=== PATIENT | male | born 1950 | race Caucasian/White ===

== ENCOUNTER → 2018-04-02 | Outpatient (CLI) | payer MEDICARE, OTHER ==
[~2018-04-02] MED LIST: ASPIR 8181 MG PO; CENTRUM SILVER1 EAC4 PO; CIPROFLOXACIN500 M1 PO; FISH OIL 1,001000 M2 PO; FLAGYL500 MG PO; HYDROCODONE-AP1 EAC6 PO; JANUVIA50 MG PO; LISINOPRIL20 MG PO; PROTONIX40 M1 PO; WELCHOL 625 MG625 MG PO; ZETIA10 MG PO
[2018-04-02 07:59] LABS: ABSOLUTE LYMPHOCYTES 1.2 thou/uL (0.8-5.3); ABSOLUTE MONOCYTES 0.4 thou/uL (0.0-1.2); ABSOLUTE NEUTROPHILS 6.4 thou/uL (1.6-8.1); BASOPHILS 0.5 %; EOSINOPHILS 0.1 %; HEMATOCRIT 42.8 % (42.0-52.0); HEMOGLOBIN 14.2 gm/dL (14.0-18.0); LYMPHOCYTES 14.9 %; MCH 30.5 pg (26.0-34.0); MCHC 33.2 g/dL (28.0-37.0); MCV 91.9 fL (80.0-100.0); MONOCYTES 5.1 %; MPV 7.2 fl. (7.2-11.1); NUCLEATED RBCS 0 /100WBC; PLATELET COUNT* 254 thou/uL (150-400); POLYS 79.4 %; RBC 4.66 mil/uL (4.50-6.00)
[2018-04-02 08:59] LABS: ESR (SEDRATE) 15 mm/hr (0-20)
== END ==
LOC: M.LAB 07:34
PROVIDERS: Internal Medicine Gastroenterology
DX: K63.3 Ulcer of intestine (principal)

== ENCOUNTER 2019-06-14 09:56 | Observation (INO) | payer OTHER ==
[2019-06-09 08:55] LABS: ABSOLUTE EOSINOPHILS 0.3 thou/uL (0.0-0.7); ABSOLUTE LYMPHOCYTES 1.7 thou/uL (0.8-5.3); ABSOLUTE MONOCYTES 0.7 thou/uL (0.0-1.2); ABSOLUTE NEUTROPHILS 4.1 thou/uL (1.6-8.1); BASOPHILS 0.7 %; EOSINOPHILS 4.2 %; HEMATOCRIT 40.5 % (42.0-52.0); LYMPHOCYTES 25.5 %; MCH 28.3 pg (26.0-34.0); MCHC 32.2 g/dL (28.0-37.0); MONOCYTES 9.6 %; MPV 6.8 fl. (7.2-11.1); NUCLEATED RBCS 0 /100WBC; PLATELET COUNT* 251 thou/uL (150-400); RBC 4.61 mil/uL (4.50-6.00); RDW-CV 15.8 % (10.5-14.5); WBC 6.8 thou/uL (4.0-11.0)
[2019-06-09 09:09] LABS: ALBUMIN 3.4 g/dL (3.4-5.0); CALCIUM 8.9 mg/dL (8.5-10.1); CREATININE 1.1 mg/dL (0.6-1.3); POTASSIUM 3.6 mmol/L (3.5-5.1); TOTAL BILIRUBIN 0.5 mg/dL (<0.1-1.0); TOTAL PROTEIN 6.8 g/dL (6.4-8.2)
--- NOTE | 2019-06-09 11:55 | EKG ---
[place] [address] ELECTROCARDIOGRAM REPORT Name: EDDA LUGO Room: PRE [facility]#: [id number] Admission: Attend Phys: Cristi Ambrose DO Discharge: Date of : 48 Report #: [id number] THIS REPORT FOR: //name// [facility] Test Date: 2019-06-09 Test Time: 09:14:31 Pat Name: EDDA LUGO Department: Room: Gender: M Director Of Event Management: : 1950 Requested By: Cristi Ambrose Order Number: [id number] Reading MD: Jose Alberto Pratt Measurements Intervals [place] Rate: 66 P: 46 DE: 178 QRS: 31 QRSD: 101 T: 47 QT: 398 QTc: 417 Interpretive Statements Sinus rhythm Compared to ECG 11/09/2016 09:07:36 No significant changes Electronically Signed On 06-09-2019 11:55:43 CDT by Jose Alberto Pratt [email or web address] <ELECTRONICALLY SIGNED> By: Jayme Pratt MD, [facility] 06/09/19 1155 09 3 Jayme Pratt MD, FACC /EPI
[~2019-06-14] VITALS: Ht 175.3 cm; Wt 117.9 kg
[~2019-06-14 09:56] MED LIST changes: +AMARYL2 MG PO; +COZAAR 25 MG TA25 M1 PO; +CYMBALTA30 MG PO; +HYDROCHLOROTHIA25 M2 PO; +JANUVIA100 MG PO; +NEURONTIN 300M300 M2 PO
[2019-06-14 11:08] VITALS: BP 126/85
[2019-06-14 17:27] VITALS: BP 126/80
--- NOTE | 2019-06-14 17:35 | NUR ---
PT ADMITTED TO UNIT WITH RT KNEE REPLACEMENT. PT ALERT AND ORIENTED. ON 2 LITERS O2. LUNGS CLEAR AND DIMINISHED. PULSES 2+ ALL EXTREMITIES. PT C/O PAIN, MEDS GIVEN ORDERED. FOOR PUMPS IN PLACE. JOLIE ON LT LEG. DRESSING RT LEG C/D/I. PT HAS NOT VOIDED AT THIS TIME. ACCU CHECKS ORDERED. POLAR PACK IN PLACE. CPM ORDERED. FALL RISK PRECAUTIONS IN PLACE. WILL CONTINUE TO MONITOR.
[2019-06-14 19:50] VITALS: BP 130/92
[2019-06-15] VITALS: BP 131/94
[2019-06-15 04:00] VITALS: BP 129/88
[2019-06-15 04:09] LABS: GLYCOHEMOGLOBIN (HGB A1C) 7.2 % (4.8-5.6)
[2019-06-15 05:28] LABS: HEMATOCRIT 36.3 % (42.0-52.0); HEMOGLOBIN 11.7 gm/dL (14.0-18.0)
--- NOTE | 2019-06-15 05:35 | NUR ---
PATIENT HAS REMAINED ALERT AND ORIENTED X 4 THROUGHOUT THE SHIFT AND RESTING AT INTERVALS ON HOURLY ROUNDS. STANDING AT BEDSIDE WITH MIN ASSIST, WALKER AND GAIT BELT TO VOID IN ADEQUATE AMOUNTS. MEDICATED FOR PAIN Q3H TO GOOD EFEFCT. DRESSING RIGHT KNEE CLEAN AND DRY. CPM INITIATED AT HS AND PATIENT TOLERATED WELL. VITAL SIGNS STABLE WITH O2 ON AT 2L/MIN AND CONTINUOUS CAPNOGRAPHY. CONTINUE TO MONITOR.
[2019-06-15 07:40] VITALS: BP 131/82
[2019-06-15] MEDS ORDERED: COLACE100 MG PO (08:47)
[2019-06-15] MEDS ORDERED: OXYCODONE HCL 55 MG PO (08:47)
[2019-06-15] MEDS ORDERED: ELIQUIS5 MG PO (08:47)
--- NOTE | 2019-06-15 09:13 | NUR ---
RECIEVED O.T. EVAL AND TX ORDER. WILL DEFER TO P.T. AT THIS TIME. PLEASE ORDER FURTHER O.T. SERVICES IF NEEDED.
[2019-06-15 12:16] VITALS: BP 131/82
[2019-06-15 12:21] VITALS: BP 131/82
--- NOTE | 2019-06-15 13:34 | OP ---
[facility] [address] [place] [address] OPERATIVE REPORT Name: EDDA LUGO [address]: [address]#: [id number] Admission: 06/14/19 Attend Phys: Narciso Han Discharge: Date of : 48 Report #: [id number] THIS REPORT FOR: //name// CC: Tasha Arenas DATE OF SERVICE: 06/14/2019 PREOPERATIVE DIAGNOSIS: Severe tricompartmental osteoarthritis of the right knee. POSTOPERATIVE DIAGNOSIS: Severe tricompartmental osteoarthritis of the right knee. SURGERY PERFORMED: MicroPort 3 components cemented at right total knee arthroplasty femur 5, tibia 6, 12 polyethylene, and 35 patella. SURGEON: Cristi Ambrose DO. DIRECTOR SURGICAL: Dr. Vera. SECOND COUNSELOR EDUCATION PROFESSOR: Kvng Gill, resident. ANESTHESIA: General anesthetic and adductor block. The patient did receive Ancef 2 grams IV piggyback preoperatively. DRAINS: None. SPECIMENS: None. COMPLICATIONS: None. ESTIMATED BLOOD LOSS: 150 mL. GROSS FINDINGS: This gentleman failed all conservative care measures of the right knee for osteoarthritis and continued with pain. Intraoperatively, this actually was worse than his radiographs where he had a completely eburnated patellofemoral joint with a hypoplastic lateral patella. Eburnated bone even some on the medial compartment. The patient post-placement of the right total knee arthroplasty had a very stable arc of motion of the right knee in full extension, mid flexion and flexion. The patella tracked well. SURGERY IN DETAIL: The patient was taken to the operating room and placed on table, given the general anesthetic, but prior to that had abductor, catheter block applied by Anesthesia in holding. A well-padded tourniquet was placed [address] [address] OPERATIVE REPORT Name: EDDA LUGO Room: [address] Remi Vidales#: [id number] Admission: 06/14/19 Attend Phys: Narciso Han Discharge: Date of : 48 Report #: [id number] on the right thigh. Next, a Hibiclens scrub and chlorhexidine prep and sterile draping for right leg surgery. Timeout was called and verified by everyone in the room for the right knee. At this point in time, I did not use a tourniquet until the cementing technique. I did make a midline incision with a 10 blade scalpel through skin and subcutaneous tissues, maintaining hemostasis at all times through surgery. A second medial parapatellar capsular incision was made. The patella was everted, knee flexed 90 degrees, and excess osteophytes were removed. Distal femoral drill hole was made in routine fashion using a 5 mm distal femoral cut, the standard cut was made off the distal femur when the block was applied. At this point in time, I did an external tibia guide, cut now and secured the guide across the ankle and proximally on the tibia measured off the most high side took 10 mm off that side and wafer of bone was cut once the block was applied. The bone was removed, I did also at this point in time now went back to the femoral side, I did do a #5, the drill holes were made, routine 4-in-1 block was applied, all cuts were made and all the excess bone was removed on the right femur. At this point in time, I did take some osteophytes off the posterior femur as well with mallet and an osteotome. I sized the tibia to a #6, the trial component was placed and held in position with pins. The trial femoral component was next applied, fit well also and I tried a 10 mm trial polyethylene in the tray and it felt stable, but a slight amount of play but this was just for a trial reasons. At this point in time, I cut the patella freehand technique as he totally wore the lateral side down. Some rather significantly, I did not want to ream this down. I sized the patella to a 35 appropriately drill the hole, did a trial reduction and it tracked well. The femoral sulcus cut was made on the trial component as well. At this point in time, I esmarched the extremity, inflated the tourniquet to 325 mmHg, Esmarch of this extremity and then did go ahead and take off the femoral component, the polyethylene trial and did my reaming and a cruciform cut to the tibia. Now at this point in time, the tibial component and trial component was removed as well as patellar component. I did pulsatile lavage irrigation, across this preparing for one stage cementing technique. At this point in time, I did cement in the tibia, removed all excess cement, cemented on the femoral component, removed all excess cement and then stretched him with a 12 mm polyethylene. During the hardening phase of cement, the patellar button was applied as well and removing excess cement. Once all the cement had hardened, clamps were removed. I put the knee through motion was quite stable, so I elected for a 12 mm polyethylene real component, I did now seat this in the tibia tray and the knee was reduced, copiously irrigated with normal saline and I did a TXA solution for 3 minutes followed with normal saline again. Tourniquet was released. He tolerated that quite nicely. At this stage I then closed the capsule with 1 Ethibond and 1 Vicryl in nwzgyz-mw-izloq fashion, 2-0 Monocryl subcutaneously with ____ running suture and Dermabond to the skin. Mepilex dressing was applied. The patient was transferred off the table, taken [place] [address] OPERATIVE REPORT Name: EDDA LUGO Room: [address] Remi Vidales#: [id number] Admission: 06/14/19 Attend Phys: Narciso Han Discharge: Date of : 48 Report #: [id number] I attest I was present for all critical aspects of the surgery. Needle, instrument, sponge counts correct. <ELECTRONICALLY SIGNED> By: Cristi Ambrose DO 06/15/19 1334 1512 [id number] Ambrose DO /smiley
--- NOTE | 2019-06-15 13:56 | NUR ---
ASSUMED CARE OF PATIENT AT APPROX 0730. ALERT ASND ORIENTED X4. ASSESSMENT COMPLETED AND CHARTED. VSS ON ROOM AIR. PAIN MANAGED WITH ORAL PAIN MEDICATION. NO COMPLAINTS OF NAUSEA OR SOA. FLUIDS AND ANTIBIOTICS INFUSED ORDERED THEN SALINE LOCKED. PATIENT UP WITH ASSIST OF ONE USING GAIT BELT ANS WALKER TO USE THE BATHROOM. WORKED WELL WITH THERAPIES AND PROGRESSED TOWARD GOALS. PATIENT DISCHARGED AT 1327 WITH ALL PERSONAL BELONGINGS, PRESCRIPTIONS, AND DISCHARGE INFORMATION.
== END 2019-06-15 13:27 | disposition home health service (06) ==
LOC: M.SUR 09:56 → M.PRE 11:56 → EDSTATUS 11:59 → M.SUR 12:13 → M.ORTHSURG 15:38 → M.TBA-ER 15:38 → M.ORTHSURG 15:38
PROVIDERS: Orthopaedic Surgery; ADMIT Internal Medicine
DX: M17.11 Unilateral primary osteoarthritis, right knee (principal); E11.9 Type 2 diabetes mellitus without complications; I10 Essential (primary) hypertension; F32.9 Major depressive disorder, single episode, unspecified; K21.9 Gastro-esophageal reflux disease without esophagitis; M10.9 Gout, unspecified; Z68.38 Body mass index [BMI] 38.0-38.9, adult; E66.9 Obesity, unspecified; Z86.718 Personal history of other venous thrombosis and embolism; Z88.8 Allergy status to other drugs, medicaments and biological substances; Z79.84 Long term (current) use of oral hypoglycemic drugs; Z79.82 Long term (current) use of aspirin; Z79.899 Other long term (current) drug therapy

== ENCOUNTER 2019-09-13 06:36 | Inpatient (IN) | payer OTHER ==
[2019-09-08 08:26] LABS: ABSOLUTE EOSINOPHILS 0.4 thou/uL (0.0-0.7); ABSOLUTE LYMPHOCYTES 1.8 thou/uL (0.8-5.3); ABSOLUTE MONOCYTES 0.6 thou/uL (0.0-1.2); BASOPHILS 0.8 %; EOSINOPHILS 6.4 %; HEMATOCRIT 44.3 % (42.0-52.0); HEMOGLOBIN 14.8 gm/dL (14.0-18.0); LYMPHOCYTES 31.8 %; MCH 29.7 pg (26.0-34.0); MCHC 33.5 g/dL (28.0-37.0); MCV 88.9 fL (80.0-100.0); NUCLEATED RBCS 0 /100WBC; PLATELET COUNT* 226 thou/uL (150-400); RBC 4.98 mil/uL (4.50-6.00); RDW-CV 20.6 % (10.5-14.5); WBC 5.8 thou/uL (4.0-11.0)
[2019-09-08 08:57] LABS: ALBUMIN 3.8 g/dL (3.4-5.0); CALCIUM 8.8 mg/dL (8.5-10.1); CREATININE 1.1 mg/dL (0.6-1.3); POTASSIUM 4.1 mmol/L (3.5-5.1); TOTAL BILIRUBIN 0.5 mg/dL (<0.1-1.0); TOTAL PROTEIN 6.9 g/dL (6.4-8.2)
[2019-09-08 09:26] LABS: ANISOCYTOSIS 2+; PLATELET ESTIMATE ADEQUATE
[2019-09-08 23:08] LABS: GLYCOHEMOGLOBIN (HGB A1C) 5.8 % (4.8-5.6)
[~2019-09-13] VITALS: Ht 175.3 cm; Wt 117.9 kg
[~2019-09-13 06:36] MED LIST changes: +COLACE100 MG PO; +ELIQUIS5 MG PO; +IRON325 M1 PO; +OXYCODONE HCL 55 MG PO
[2019-09-13 12:10] VITALS: BP 145/85
[2019-09-13 16:22] VITALS: BP 120/73
--- NOTE | 2019-09-13 17:35 | NUR ---
PT REMAINED ALERT AND ORIENTED. PT RESTING IN BED. PAIN MEDS GIVEN ORDERED. PT HAS NOT VOIDED YET SINCE ARRIVAL TO UNIT. FALL RISK PRECAUTIONS IN PLACE. HOURLY ROUNDING COMPLETED. WILL CONTINUE TO MONITOR.
[2019-09-13 19:45] VITALS: BP 127/83
[2019-09-13 23:35] VITALS: BP 119/79
[2019-09-14 04:41] LABS: HEMATOCRIT 38.4 % (42.0-52.0); HEMOGLOBIN 12.8 gm/dL (14.0-18.0)
[2019-09-14 04:56] VITALS: BP 132/72
--- NOTE | 2019-09-14 05:17 | NUR ---
PATIENT AMBULATING WELL WITH WALKER TO RESTROOM. HIS PAIN MANAGED WELL WITH HYDROCODONE AND OXYCODONE. RECEIVED ALL SCHEDULED ABX. DRESSING ON LEFT KNEE IS C/D/I AND JOLIE HOSE IN PLACE. PLAN TO WORK WITH THERAPY TODAY. WILL CONTINUE TO FOLLOW PLAN OF CARE.
[2019-09-14 07:15] VITALS: BP 150/91
[2019-09-14] MEDS ORDERED: OXYCODONE HCL 55 MG PO (09:35)
[2019-09-14] MEDS ORDERED: NORCO 5-325 TA1 EAC1 PO (09:36)
[2019-09-14] MEDS ORDERED: ELIQUIS2.5 MG PO (09:36)
[2019-09-14] MEDS ORDERED: ASPIR-TRIN325 MG PO (09:38)
[2019-09-14 09:39] VITALS: BP 150/91
--- NOTE | 2019-09-14 11:00 | NUR ---
PT.IS BEING DISCHARGED TODAY WITH HH. HE SAID HE WANTS TO HAVE THE SAME LAST TIME. WAS IN IN JUN.FOR OTHER KNEE SURGERY. HE USED [facility] FOR HOME HEALTH BEFORE PRIOR TO DOING OUTPT.THERAPY. HE HAS A FRONT WHEEL WALKER AT HOME. HIS WILL BE WITH HIM WHEN HE GOES HOME. FAXED REFERRAL TO [facility]/CHRISTOPHER. THEY WILL CALL HIM TO SET UP APPTS. CALLED GAEL INTO HIS PHARACY [facility], WRITTEN. UNABLE TO OBTAIN COPAY. PT.SAID HE HAS MET HIS YEARLY DEDUCTIBLE FROM LAST SURGERY. PT.WANTING LEAVE SO WILL NOT WAIT FOR COPAY.
[2019-09-14 12:17] VITALS: BP 150/91
--- NOTE | 2019-09-14 12:18 | NUR ---
PT GIVEN DISCHARGE INFORMATION, CARE NOTES, AND PRESCRIPTIONS. IV REMOVED. PT DID NOT WANT NORCO PRESCRIPTION, PRESCRIPTION SHREDDED. FALL RISK PRECAUTIONS IN PLACE. HOURLY ROUNDING COMPLETED. PT LEFT VIA WHEELCHAIR WITH NURSING STAFF TO HOME WITH HOME HEALTH.
--- NOTE | 2019-09-14 12:20 | NUR ---
RECIEVED O.T. EVAL AND TX ORDERS. WILL DEFER TO P.T. AT THIS TIME. PLEASE ORDER FURTHER O.T. SERVICES.
--- NOTE | 2019-09-14 12:21 | OP ---
[address] [address] OPERATIVE REPORT Name: LUGOEDDA Room: [address] [place] .#: [id number] Admission: 09/13/19 Attend Phys: Narciso Han Discharge: Date of : 48 Report #: [id number] THIS REPORT FOR: //name// CC: Cristi Arenas DATE OF SERVICE: 09/13/2019 PREOPERATIVE DIAGNOSIS: Severe left knee tricompartmental osteoarthritis. POSTOPERATIVE DIAGNOSIS: Severe left knee tricompartmental osteoarthritis. SURGERY PERFORMED: Mirna cemented 3 component, left total knee arthroplasty femur #7, F is the tibia, 14 polyethylene, 32 patella. SURGEON: Cristi Ambrose DO DRAFTING INSTRUCTOR: Sean Gilbert DO, resident. ANESTHESIA: General anesthetic plus an adductor block to the left leg. ESTIMATED BLOOD LOSS: 150 mL. ANTIBIOTICS: The patient did receive Ancef 2 grams IV piggyback preoperatively. SPECIMENS: He has no specimen. DRAINS: He has no drains. COMPLICATIONS: None. GROSS FINDINGS: Prior to surgery, this gentleman has failed all conservative care measures for osteoarthritis of the left knee, here for definitive treatment now in the form of surgical intervention for total arthroplasty. Intraoperatively x-rays correlated with his intraoperative findings, severe eburnated bone to the entire patellofemoral compartment as well as eburnated bone to the medial and the lateral compartments across the femoral sides, tibia sides, significant laterally more than medially. Post placement of the total joint arthroplasty through an arc of motion, extension, mid flexion and flexion, it was stable in all planes. SURGERY IN DETAIL: This gentleman was taken to the operating room and placed on the table, given the benefit of general anesthetic. Prior to this, he also had an adductor block by anesthesia to his left thigh. He underwent a Hibiclens scrub and chlorhexidine prep and sterile draping [place] [address] OPERATIVE REPORT Name: EDDA LUGO Room: [address] [place] [facility].#: [id number] Admission: 09/13/19 Attend Phys: Narciso Han Discharge: Date of : 48 Report #: [id number] was called and verified by everyone in the room for the left leg. Surgery began without a tourniquet. I only used tourniquet for cementing purposes at the end of the case. A midline incision was made with a 20 blade scalpel through skin and subcutaneous tissues followed with a second medial parapatellar capsular incision. Hemostasis was maintained throughout surgery. Patella was everted, knee flexed 90 degrees. Distal femoral drill hole was made in routine fashion. The distal femoral cut was made in a 5-degree angle for the left leg and a wafer of bone was removed from each side. Once the femur was cut distally, it went down to the tibia side using external guide across the ankle and proximally secured the cutting bone block in place, measured off the high lateral side with a stylus, appropriately held cutting block in place and then the wafer of bone was cut and removed from the tibia. The extension block was placed and noted to fit quite well. All pins were now removed. I went back to the femoral side and sized his femur to a #7 appropriately. At this point in time, the 4-in-1 block was applied. All cuts were made and all excess bone was now removed. Once the femur was finished, went back to the tibia sized with various sizers of trials across his knee. The F looked like it fit him wall to wall anterior, posterior, medial and lateral, so it was clamped into position appropriately. The patient's surgery continued with a screw in that trial component into the tibia, now put in the femoral component back in place appropriately. Distal femoral holes were now drilled. Surgery continued again with trying the polyethylene a 12 fit into the joint and so once this was accomplished, he felt still good in most planes and so I went down and cut the patella with the Mirna reamer, 32 patella was sized and appropriately drilled, and placed. I now drilled the distal femur as well and Esmarch the extremity. Tourniquet was inflated to 300 mmHg. At this point in time, I removed all the femoral components, the polyethylene component, drilled, and reamed and appropriately cruciform cut was made across the tibia proximally. All trial components were removed. I prepared the leg for cementing techniques now. Pulsatile lavage irrigation was used across the entire knee surface. I maintained hemostasis one more time throughout all aspects of the knee. I did a 1 stage cementing technique with F tibia, compressing it, removing excess cement. Then, I put in the 7 component to compress it, removed an excess cement, compressed him with a 14 mm polyethylene and then cemented in the patella as well. I held the leg in extension until cement had hardened. Appropriately TXA solution was put into the knee, now for an additional 5 minutes until cement finished hardening. I went ahead and then removed. I released the tourniquet at this point in time. I was preparing him now for the real polyethylene. The 14 was very stable, so I elected to put in a vitamin E 14 mm polyethylene and clicked it into the tibia tray. Leg was reduced. Again, hemostasis was maintained. A pulsatile lavage irrigated the knee, closed him deep capsule with #1 Vicryl, #1 Ticron in dvbkza-dm-xghll fashion, subcutaneous tissues, 2-0 Monocryl in wsqxzk-lx-ujovn fashion, a running Stratafix and Dermabond with Mepilex dressing applied, transferred off the table, taken [place] [address] OPERATIVE REPORT Name: EDDA LUGO Room: [address] [place] [facility]#: [id number] Admission: 09/13/19 Attend Phys: Narciso Han Discharge: Date of : 48 Report #: [id number] I attest I was present for all critical aspects of surgery. Needle, instrument, and sponge counts were correct on this gentleman. <ELECTRONICALLY SIGNED> By: Cristi Ambrose DO 09/14/19 1221 1438 Esther Ambrose DO /nt
== END 2019-09-14 12:22 | disposition home health service (06) | DRG 470 ==
LOC: M.PRE 06:36 → M.TBA 11:39 → M.ORTHSURG 15:05 → M.TBA 15:05 → M.ORTHSURG 16:02 → M.PRE 16:20 → M.ORTHSURG 09-14 12:22
PROVIDERS: Orthopaedic Surgery; ADMIT Internal Medicine
PROC: 0SRD0J9 Replacement of Left Knee Joint with Synthetic Substitute, Cemented, Open Approach (ICD-10-PCS; principal; 2019-09-13)
DX: M17.12 Unilateral primary osteoarthritis, left knee (principal); D62 Acute posthemorrhagic anemia; I10 Essential (primary) hypertension; Z96.1 Presence of intraocular lens; F32.9 Major depressive disorder, single episode, unspecified; K21.9 Gastro-esophageal reflux disease without esophagitis; M10.9 Gout, unspecified; Z96.651 Presence of right artificial knee joint; E78.00 Pure hypercholesterolemia, unspecified; R19.7 Diarrhea, unspecified; E78.5 Hyperlipidemia, unspecified; E11.40 Type 2 diabetes mellitus with diabetic neuropathy, unspecified; K25.9 Gastric ulcer, unspecified as acute or chronic, without hemorrhage or perforation; Z88.8 Allergy status to other drugs, medicaments and biological substances; Z98.42 Cataract extraction status, left eye; Z98.41 Cataract extraction status, right eye; Z87.891 Personal history of nicotine dependence

== ENCOUNTER → 2019-09-16 | Outpatient (CLI) | payer OTHER ==
[~2019-09-16] MED LIST changes: +ASPIR-TRIN325 MG PO; +ELIQUIS2.5 MG PO; +NORCO 5-325 TA1 EAC1 PO
== END ==
LOC: M.ULTRA 16:00
DX: I82.432 Acute embolism and thrombosis of left popliteal vein (principal)

== ENCOUNTER → 2019-12-22 | Outpatient (CLI) | payer OTHER | LOC: M.ULTRA 09:44 | DX: I82.512 Chronic embolism and thrombosis of left femoral vein (principal); I82.532 Chronic embolism and thrombosis of left popliteal vein ==

== ENCOUNTER → 2020-03-22 | Outpatient (CLI) | payer OTHER | LOC: M.ULTRA 09:42 | PROVIDERS: ATTEND Family Medicine | DX: I82.432 Acute embolism and thrombosis of left popliteal vein (principal) ==

== ENCOUNTER → 2020-10-31 | Outpatient (CLI) | payer OTHER ==
[2020-10-31 15:14] LABS: ABSOLUTE BASOPHILS 0.1 thou/uL (0.0-0.2); ABSOLUTE EOSINOPHILS 0.3 thou/uL (0.0-0.7); ABSOLUTE LYMPHOCYTES 2.2 thou/uL (0.8-5.3); ABSOLUTE MONOCYTES 0.6 thou/uL (0.0-1.2); ABSOLUTE NEUTROPHILS 4.2 thou/uL (1.6-8.1); BASOPHILS 0.8 %; EOSINOPHILS 3.7 %; HEMATOCRIT 49.6 % (42.0-52.0); HEMOGLOBIN 16.7 gm/dL (14.0-18.0); LYMPHOCYTES 30.3 %; MCH 31.2 pg (26.0-34.0); MCHC 33.6 g/dL (28.0-37.0); MCV 92.8 fL (80.0-100.0); MONOCYTES 7.7 %; MPV 7.5 fl. (7.2-11.1); NUCLEATED RBCS 0 /100WBC; PLATELET COUNT* 236 thou/uL (150-400); POLYS 57.5 %; RBC 5.35 mil/uL (4.50-6.00); RDW-CV 13.8 % (10.5-14.5); WBC 7.2 thou/uL (4.0-11.0)
[2020-10-31 16:19] LABS: ESR (SEDRATE) 0 mm/hr (0-20)
== END ==
LOC: M.LAB 15:01
PROVIDERS: ATTEND Orthopaedic Surgery
DX: M79.642 Pain in left hand (principal); M79.641 Pain in right hand